=== PATIENT | female | born 2000 | race Caucasian/White ===

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

== ENCOUNTER → 2019-03-15 15:13 | Outpatient (CLI) | payer OTHER, SELFPAY ==
--- NOTE | 2019-03-15 11:19 | TONS_PTH ---
PATIENT: AUSTIN NUÑEZ LOC: [facility] U#:[id number] AGE/SX: 24/F ROOM: RE03/15/[address]: Dr. Ludwin Liu MD : 2000 BED: DIS: SPEC #: [id number] RECD: 03/15/19 15:11 STATUS: LOI BRIONNA #: [id number] ELIAS: 03/15/19 11:[address]: Ludwin Liu DEPT: SURGICAL PATHOLOGY RECD BY: Dianna Cerna ENTERED: 03/16/19 11:10 SP TYPE: TONSILS OTHR DR: Dr. Hamzah Aden MD [facility] Tissues: Tonsil, NOS Procedures: Surgery Specimen Level III HEADER OPERATION: Tonsillectomy PRE-OP DIAGNOSIS: Chronic tonsillitis, hypertrophy of tonsils TISSUE SUBMITTED: Tonsils, right pinned MICROSCOPIC DIAGNOSIS Right and left tonsils, bilateral tonsillectomies: Benign lymphoid follicular hyperplasia, consistent with chronic tonsillitis. AM:eamon 03/17/19 MICROSCOPIC DESCRIPTION Slides are reviewed. GROSS DESCRIPTION Received is one container labeled with the patient's name and designated tonsils - pin on right are two tonsils that in aggregate weigh 15.6 gm. The right tonsil has a pin on it and measures 3.5 x 2.5 x 1.8 cm. The left tonsil measures 2.8 x 3 x 2 cm. Both tonsils are similar in appearance. The external surfaces are pink-diallo, smooth, glistening and somewhat lobulated. Focally they are hemorrhagic, granular and bear cautery artifact. Serial cross sections through the tonsils reveal normal tonsillar architecture. Sections are submitted in two cassettes as follows: 1 - right tonsil, 2 - left tonsil. / SJ:eamon 03/16/19 TC:5 CPT: 09042 x2
== END ==
PROVIDERS: Family Provider Family Medicine; PCP Family Medicine; Referring Provider Otolaryngology; Visit Provider Otolaryngology
DX: J35.01 Chronic tonsillitis (principal)
CPT/HCPCS: 88304

== ENCOUNTER → 2019-06-24 11:48 | Outpatient (CLI) | payer OTHER, SELFPAY ==
[2019-06-24 15:24] LABS: Hematocrit 41.6 % (37-47); Hemoglobin 13.6 g/dL (12.0-15.0); Mean Corp Hgb Conc 32.7 g/dL (32-36); Mean Corpuscular Hgb 30.2 pg (27.0-32.0); Mean Corpuscular Volume 92.4 fL (81-99); Platelet Count 219 K/mm3 (150-450); RBC Distribution Width CV 13.3 % (11.6-14.6); RBC Distribution Width SD 45.3 fl (35.1-43.9)
[2019-06-24 15:38] LABS: Vitamin D,25 Hydroxy 16.8 ng/mL
[2019-06-24 16:08] LABS: ALB/GLOB Ratio 1.1 RATIO (0.9-2.4); AST(SGOT) 12 U/L (15-37); Alanine Aminotransfer ALT/SGPT 20 U/L (13-56); Albumin, Serum 3.8 g/dL (3.2-5.0); Alkaline Phosphatase 67 U/L (45-117); Anion Gap 7 (5-15); BUN 12 mg/dL (7-18); BUN/Creat Ratio 17.9 RATIO (10-20); Chloride 107 mmol/L (98-107); Creatinine, Serum 0.67 mg/dL (0.55-1.02); EST Glomerular Filtration Rate 119 mL/min (>60); Est Glom Filt Rate - Afr Amer 144 mL/min (>60); Globulin 3.5 g/dL (2.2-4.2); Glucose 78 mg/dL (74-106); Iron 37 ug/dL (50-170); Potassium 3.7 mmol/L (3.5-5.1); Protein, Total 7.3 g/dL (6.4-8.2); Sodium Level 139 mmol/L (136-145); Thyroid Stim Hormone (TSH) 0.71 uIU/mL (0.358-3.74)
== END ==
PROVIDERS: PCP Family Medicine; Referring Provider Family Medicine; Visit Provider Family Medicine
DX: N92.6 Irregular menstruation, unspecified (principal); F32.9 Major depressive disorder, single episode, unspecified
CPT/HCPCS: 36415; 80053; 82306; 83540; 84443; 85027

== ENCOUNTER 2020-02-01 13:04 | Observation (INO) | payer OTHER, SELFPAY ==
[2019-10-28 16:28] VITALS: BMI 27.8
--- NOTE | 2020-01-31 20:49 | HP.PCM_ITS ---
History and Physical Date of Admission: 02/01/20 HISTORY OF PRESENT ILLNESS 19 year old woman presents with complaints of bilateral macromastia as well as associated painful symptomatology of neck pain, thoracic back pain, bilateral shoulder pain from shoulder grooving from the weight of her breasts on her bra straps, and inframammary intertrigo for which she uses powders for relief. She denies any trauma to her breasts. Denies any nipple discharge. She has been seeing a Chiropractor for her neck and thoracic back pain without much relief in her painful symptomatology. We have received medical approval for the breast reduction surgery from her insurance carrier. It is scheduled for 02/01/20. She presents at this time for education and to answer her preop questions and concerns and to sign consents. PAST MEDICAL HISTORY Intertrigo Shoulder pain Chronic thoracic back pain Chronic neck pain Macromastia Anxiety and depression PAST SURGICAL HISTORY tonsillectomy ALLERGIES No Known Allergies MEDICATIONS Cholecalciferol (Vitamin D3) [Vitamin D3] Desogestrel-Ethinyl Estradiol [Juleber 28 Day Tablet] diazepam FAMILY HISTORY Other - No pertinent family history SOCIAL HISTORY Smoking Status: Never smoker alcohol intake: never substance use type: does not use REVIEW OF SYSTEMS General - Denies fever, fatigue, and weight loss. Eyes - Denies cataracts. Has glaucoma. ENT - Denies nasal congestion and sore throat. Endocrine - Denies excessive thirst and urination. Family history of breast cancer. Skin - Denies suspicious lesions and skin cancer. Has inframammary intertrigo for which she uses powders for relief. Musculoskeletal - Denies joint pain, weakness of muscles and joints, and arthritis. Has joint stiffness and neck pain and back pain. Her neck and back pain involve cervical and thoracic area. Has bilateral shoulder pain from shoulder grooving from the weight of her breasts on her bra straps. Neuro - Has headaches. Cardiovascular - Denies chest pain, fatigue, and shortness of breath with exertion. Psych - Denies anxiety. Has depression. Respiratory - Denies shortness of breath and chronic cough. Has asthma. Gastrointestinal - Denies nausea, vomiting, diarrhea. Has constipation. Hematologic - Denies abnormal bruising and bleeding. Genitourinary - Denies hematuria and urinary frequency. PHYSICAL EXAMINATION General - Alert and oriented. Patient's bra size is 36 DDD. HEENT - PERRL. EOMI. Throat is clear. Neck - Supple. No bony tenderness. There is some pericervical soft tissue tenderness. Lungs- Clear to auscultation. Heart - Regular rate and rhythm. Breasts - Patient has bilateral macromastia. No breast masses palpable. No axillary adenopathy noted. Distance from midclavicular line on the left to the nipple is 30 cm and from the nipple to the inframammary fold is 11 cm. Distance from midclavicular line on the right to the nipple is 31 cm and from nipple to the inframammary fold is 11 cm. Nipple areolar complex diameter is 7 cm bilaterally. No active inframammary int ertrigo noted at this time. Abdomen - Soft and non distended. Back - No bony tenderness noted. There is perivertebral soft tissue tenderness in the upper thoracic area. Extremities - FROM. No axillary adenopathy. Radial pulses are palpable. There is some bilateral shoulder tenderness with shoulder grooving from the weight of her breasts on her bra straps. Neuro - CN II-XII grossly intact. Psych - Normal and mood and affect. ASSESSMENT 1. Bilateral macromastia. 2. Neck pain. 3. Thoracic back pain. 4. Bilateral shoulder pain from shoulder grooving from the weight of the breasts on her bra straps. 5. Inframammary intertrigo. PLAN Discussed with the patient the procedure of breast reduction mammoplasty. I feel this procedure would be beneficial in this patient as it would help relieve her painful symptomatology. Patient states she has not had a mammogram. She will not one preop due to her age. Postoperatively, she would get a breast reduction baseline mammogram at some point. I would remove approximately 600 grams of breast tissue per side. We will send the tissue to pathology for analysis to rule out carcinoma. Discussed with patient the extent of scarring for this procedure. The biggest risk for wound healing problems is the T-zone area. Usually wound care and sometimes antibiotics are necessary for healing in this area. She would have drains in for a few days depending on the amount of tissue that is removed. She will be on antibiotics until the drains are removed. In general, the final breast size for this patient ranges from a C cup to a low D cup. Patient voices understanding. Surgery will be done under general anesthesia with a surgical observation overnight stay in the hospital. Patient was informed of the risks and complications of the procedure including alternatives to surgery. These were discussed with her personally. She voices understanding and wishes to proceed. Some of the risks and complications were included in a form from the [employer] [place] [employer]. We have received medical approval for the breast reduction mammaplasty. It is scheduled for February 01, 2020. Discussed with the patient that sometimes it is difficult to breast feed after a breast reduction surgery. She states if she has children in the future and if she has trouble with breast feeding, then she will bottle feed her baby. Also because of her age, she may still be developing her breasts. After her breast reduction surgery, if she is still developing she may increase her breast size about half a cup size on average. She understands that possibility and wishes to proceed. She had preop questions that were answered personally and to her satisfaction. Her consents were signed. She is having issues with anxiety and difficulty sleeping due to worrying about her upcoming surgery. Will prescribe Valium for bedtime until her surgery. We discussed the current risks associated with COVID-19. While it is understood that there is a community spread of COVID-19, the risk of mukul COVID-19 while at [place] ([facility]) is very low; however, the risk cannot be completely mitigated because of the community spread of the disease. We discussed in detail the risk of exposure to and/or potential harm posed by the COVID-19 virus with having a surgery/procedure at this time versus the risk of delaying the surgery/procedure. It is not possible to know either the risk of delaying the surgery or procedure or chance of getting an infection with perfect accuracy, but a joint decision was made to proceed at this time with the scheduled surgery/procedure as indicated on the consent form. Patient was notified that we will need to comply with any screening or testing [facility] wishes to perform or that surgery may be delayed for any positive results. Discussed with the patient that I was tested for COVID-19 on 09/02/19 which was negative and on 09/16/19 which was negative and on 09/30/19 which was negative and on 10/14/19 which was negative and on 10/28/19 which was negative and on 11/18/19 which was negative and on 12/09/19 which was negative and on 01/13/20 which was negative. My testing regimen at this time is to be COVID-19 tested every 2 weeks or so. Procedure Criteria Procedure Type: Elective COVID Risk Discussion: The surgeon/proceduralist and patient have discussed in detail the risk of exposure to and/or potential harm posed by the COVID-19 virus with having a surgery/procedure at this time versus the risk of delaying the surgery/procedure. It is not possible to know either the risk of delaying the surgery or procedure or chance of getting an infection with perfect accuracy, but a joint decision was made between the patient and the surgeon/proceduralist to proceed at this time with the scheduled surgery/procedure as indicated on the consent form.
[2020-02-01] VITALS (12 sets, daily range): BP systolic 100–134; BP diastolic 54–72; PULSE 76–102; RESP 14–18; TEMP 36.3–36.8; O2SAT 98–100; BMI 31.6
[2020-02-01 06:14] LABS: Internal QC Validated? YES +Cl - CLEAR BKGD; Pregnancy, Urine Negative Negative
[2020-02-01] MEDS: Scopolamine 1mg/72hr Patch 1 PATCH TD (06:30)
[2020-02-01] MEDS: Gabapentin 600 MG Tablet PO (06:30)
[2020-02-01] MEDS: Acetaminophen 500 MG Tablet 1000 MG PO ×3 (06:30→22:54)
[2020-02-01 06:35] LABS: Magnesium 1.8 mg/dL (1.6-2.6)
[2020-02-01] MEDS: Lactated Ringers 1,000 ML 40 ML IV ×2 (06:49→14:36)
[2020-02-01 06:50] LABS: Bedside Glucose 64 mg/dL (70-110)
--- NOTE | 2020-02-01 07:30 | BR_PTH ---
PATIENT: AUSTIN NUÑEZ LOC: [facility] U#:[id number] AGE/SX: 19/F ROOM: MS320 RE02/01/[address]: Dr. Rao Loomis MD : 2000 BED: 1 DIS: 02/02/2020 SPEC #: [id number] RECD: 02/01/20 12:53 STATUS: LOI BRIONNA #: [id number] ELIAS: 02/01/20 07:[address]: Rao Loomis DEPT: SURGICAL PATHOLOGY RECD BY: Deyanira Downs ENTERED: 02/02/20 08:36 SP TYPE: MAMOPLASTY OTHR DR: Dr. Hamzah Aden MD Tissues: A - Right breast, NOS B - Left breast, NOS Procedures: Surgery Specimen Level IV HEADER OPERATION: ERAS, breast reduction mammoplasty PRE-OP DIAGNOSIS: Bilateral macromastia; neck and thoracic back pain; bilateral shoulder pain; inframammary intertrigo TISSUE SUBMITTED: A - Left breast tissue, B - Right breast tissue MICROSCOPIC DIAGNOSIS A. Left breast, reduction mammoplasty: Skin with no pathologic change. Breast parenchyma with focal duct ectasia and fibrocollagenous change. B. Right breast, reduction mammoplasty: Skin with no pathologic change. Breast parenchyma with focal duct ectasia and fibrocollagenous change. AM:eamon 02/03/20 MICROSCOPIC DESCRIPTION Slides are reviewed. GROSS DESCRIPTION A - Received in fixative is one container labeled with the patient's name and designated left breast. The specimen consists of multiple irregular fragments of rubbery, yellow-diallo soft tissue ranging in size from 2 to 14 cm and weighing in aggregate 937 gm. Portions of light diallo skin are adherent to the larger fragments. No cutaneous lesions are identified and serial sections reveal yellow-white cut surfaces. No distinct mass lesions are identified. Hop Picker sections are submitted in five cassettes. B - Received in fixative is one container labeled with the patient's name and designated right breast. The specimen consists of multiple irregular fragments of rubbery, yellow-diallo soft tissue ranging in size from 4 to 15 cm and weighing in aggregate 1036 gm. Portions of light diallo skin are adherent to the larger fragments. No cutaneous lesions are identified and serial sections reveal yellow-white cut surfaces. No distinct mass lesions are identified. Hop Picker sections are submitted in five cassettes. / AM:eamon 02/02/20 TC:5 CPT: 70490 x2
[2020-02-01] MEDS: Cefazolin 2 GM in 0.9% Normal Saline 100 ML IV (07:39)
[2020-02-01] MEDS: Lidocaine 1% /Epi 1:100 (20ml) 20 ML Vial (08:10)
--- NOTE | 2020-02-01 12:56 | OP.PCM_ITS ---
Report of Operation Date of Procedure: 02/01/20 Pre-Operative Diagnosis: 1. Bilateral macromastia. 2. Neck pain. 3. T horacic back pain. 4. Bilateral shoulder pain from shoulder grooving from the weight of the breasts on her bra straps. 5. Inframammary intertrigo. Post-Operative Diagnosis: Same. Surgery/Procedure Performed:: Bilateral breast reduction mammaplasty. Description of Surgical Findings:: 19 year old woman presents with complaints of bilateral macromastia as well as associated painful symptomatology of neck pain, thoracic back pain, bilateral shoulder pain from shoulder grooving from the weight of her breasts on her bra straps, and inframammary intertrigo for which she uses powders for relief. She denies any trauma to her breasts. Denies any nipple discharge. She has been seeing a Chiropractor for her neck and thoracic back pain without much relief in her painful symptomatology. We have received medical approval for the breast reduction surgery from her insurance carrier. It is scheduled for 02/01/20. She presents at this time for education and to answer her preop questions and concerns and to sign consents. Patient was informed of the risks and complications of the procedure including alternatives to surgery. These were discussed with the patient personally. Patient voices understanding and wishes to proceed. Some of the risks and complications were included in a form from the [employer]. IV Fluids - 2300 ml. Urine Output - 550 ml. Tissue removed from the left breast - 912 grams. Tissue removed from the right breast - 1024 grams. I used AmnioFill Placental Connective Tissue Powder, (500 mg in each breast). Catalog Number - [id number]. Lot Number - [id number]. Expiration - June 01, 2024, (left breast). Catalog Number - [id number]. Lot Number - [id number]. Expiration - June 01, 2024, (right breast). I used Dea absorbable hemostat, (I used 4 vials, 2 in each breast). Reference Number - [id number]. Lot Number - [id number]. Expiration - August 28, 2024. customer service operator: Darci Estrada. Type of Anesthesia:: General Specimen's removed: 1. Left breast tissue to Pathology. 2. Right breast tissue to Pathology. Drains: Raymundo x2 (one in each breast). Estimated Blood Loss (mL): 250 ml. Fluids Replaced: 2850 ml (IV Fluids 2300 ml, Urine Output 550 ml). Description of Procedure: In the preop area, the patient was placed in the sitting position and preoperative markings were made. The sternum midline was marked down to the umbilicus. The inframammary folds were marked bilaterally. The midclavicular line was then marked down to the nipple, then from the nipple to the inframammary fold. The inframammary fold was then superimposed on the midclavicular line and I made a point 1 cm below that to be the new position of the nipple-areolar complex. 7 cm lines were then drawn divergent from that point to encompass the nipple-areolar complex. The distance between the diver gent lines was 9 cm. The patient was then placed in the supine position and taken to the operating room and placed under general anesthesia and her breasts were prepped and draped in usual fashion. Ioban draping was also used. SCDs were placed for DVT prophylaxis. Perioperative antibiotics were given intravenously. A Lauren catheter was also placed. For the surgery I wore an N95 mask and wore proper eye protection. I then josué straight lines down from the lines drawn divergent around the nipple-areolar complex down to the inframammary fold. The width of the pedicle is 9 cm. I then used a 42 mm circular template for a new size of the nipple-areolar complex. The central markings were infiltrated with Xylocaine and epinephrine. The central skin was then deepithelialized. I started on the left side first and then went to the right side. I then mobilized medial and lateral breast flaps at the level of Dimple's fascia down to within a centimeter of the chest wall. This was met in the midline of the breast with dissection at the level of Dimple's fascia down to within a centimeter of the chest wall. Once the central breast mound pedicle was from the skin envelope, the reduction was then begun. Most of the tissue was removed from the superior aspect of the breast and the lateral aspect of the breast. I then sutured the leading edge of the medial and lateral breast flaps to the midline of the inframammary fold with 2-0 Vicryl suture. The vertical incision was approximated using surgical clips. The excess tissue from the medial and lateral breast flaps were excised and the horizontal incision was approximated using surgical clips. The patient was then placed in a sitting position. Using a vertical limb length of 4.5 cm, I josué the new position of th e new nipple-areolar complexes on both breasts. They were in good position on the central aspect of the breast mound. Good symmetry was noted between the left breast and the right breast. Good shape and contour and projection was noted and appeared clinically to be a full C cup or small D cup. The patient was then placed back in the supine position and the surgical clips were removed. The breast wounds were then irrigated with Irrisept 0.05% Chlorhexidine solution which was followed by saline irrigation. Hemostasis was obtained using electrocautery. The tissue removed from the left breast was 912 grams. The tissue removed from the right breast was 1024 grams. The tissue that was removed from the breasts was sent to Pathology for analysis to rule out carcinoma. After hemostasis was obtained using electrocautery, I then sprayed Dea absorbable hemostat into both breast wounds. I used 2 vials for each side. I then placed a size 15 Raymundo drain into each breast wound to be brought through the lateral aspect of the horizontal incision. I then closed the breast wounds by first approximating the leading edge of the medial and lateral breast flaps to the midline of the inframammary fold with 2-0 Vicryl suture. The deep dermis and subcutaneous tissue of the vertical incision and the horizontal incisions were approximated using 3-0 Monocryl interrupted sutures. While these sutures were being placed, I placed AmnioFill placental connective tissue powder in the Tzone area to help promote healing in this area. I used 500 mg of AmnioFill for each breast at the Tzone area. The horizontal incision was then approximated using 4-0 V-Loc unidirectional barbed running subcuticular suture. I also placed a few 4-0 Prolene vertical mattress interrupted sutures at the level of the Tzone. The vertical incision was then closed on the skin with 4-0 Prolene interrupted sutures. With a vertical limb length of 4.5 cm, I josué a circular incision where the nipple-areolar complex would be brought through this keyhole incision. Incisions were made and the nipple areolar complex was brought through the keyhole incision. The nipple-areolar complex was secured to the breast skin using 3-0 Monocryl interrupted sutures for deep dermis and subcutaneous tissue. The skin was approximated using 4-0 Prolene simple interrupted sutures. This was then covered with Histoacryl skin tissue adhesive. I sutured the drain to the skin using 3-0 nylon suture. At the end of the procedure, the breasts were soft with no evidence of vascular compromise. No evidence of hematomas were noted. The nipples were viable. I then dressed the breasts with a Kerlix gauze and a surgical bra. Then patient tolerated the procedure well and will be sent to the recovery room in satisfactory condition. She will be admitted for surgical observation overnight stay. She will go home tomorrow once she is tolerating oral pain medication. I will remove the drains in a few days. She will keep her head elevated during the initial postoperative period. She will be maintained on a lifting restriction and keep her head elevated during the initial postoperative period. Post-discharge, she may get a compression sports bra as well. She will have the Lauren removed in the morning. She will be sent home on antibiotics and pain medicine. Sutures will be removed in 1-2 weeks. Grafts/Implants Used: AmnioFill x2 and Dea. - Complications None. - Admit VTE Documentation VTE Present on Admission: No VTE Mechan Device Prophylaxis: SCD's VTE Pharm Prophylaxis ordered?: Yes Surgery Charges CPT - 57197 ICD-10 - N62, M54.2, M54.6, M25.519, L30.4 [id number] N62, M54.2, M54.6, M25.519, L30.4
[2020-02-01] MEDS: Lactated Ringers 1,000 ML 60 ML IV ×2 (14:36→15:00)
[2020-02-01] MEDS: Cefazolin 1 GM/50 ML BAG IV ×2 (15:55→22:52)
[2020-02-01] MEDS: Gabapentin 100 MG Capsule 200 MG PO (17:34)
[2020-02-01] MEDS: Docusate Sodium 100 MG Capsule PO (22:52)
[2020-02-02] MEDS: 0.9% Saline Lock 10 ML Syringe IV ×2 (00:29→05:04)
[2020-02-02 04:40] VITALS: BP 100/58; PULSE 88; RESP 16; TEMP 36.6; O2SAT 98
[2020-02-02] MEDS: Acetaminophen 500 MG Tablet 1000 MG PO ×2 (05:03→12:30)
[2020-02-02] MEDS: Cefazolin 1 GM/50 ML BAG IV (05:04)
[2020-02-02 07:14] LABS: Hematocrit 29.2 % (37-47); Hemoglobin 9.3 g/dL (12.0-15.0); Mean Corp Hgb Conc 31.8 g/dL (32-36); Mean Corpuscular Hgb 29.8 pg (27.0-32.0); Mean Corpuscular Volume 93.6 fL (81-99); Mean Platelet Vol. 10.7 fl (6.2-12.0); Platelet Count 186 K/mm3 (150-450); RBC Distribution Width CV 12.9 % (11.6-14.6); RBC Distribution Width SD 44.6 fl (35.1-43.9); Red Blood Count 3.12 M/mm3 (4.2-5.4); White Blood Count 7.5 K/mm3 (4.4-11.0)
[2020-02-02 07:42] LABS: Anion Gap 3 (5-15); BUN 4 mg/dL (7-18); BUN/Creat Ratio 7.9 RATIO (10-20); Calcium,Total 7.8 mg/dL (8.5-10.1); Chloride 110 mmol/L (98-107); EST Glomerular Filtration Rate 165 mL/min (>60); Est Glom Filt Rate - Afr Amer 199 mL/min (>60); Estimated Creatinine Clearance 135.43 ml/min; Glucose 84 mg/dL (74-106); Potassium 3.7 mmol/L (3.5-5.1); Prealbumin 18.4 mg/dL (20.0-40.0); Sodium Level 140 mmol/L (136-145)
[2020-02-02 08:17] VITALS: O2SAT 96
[2020-02-02 08:45] VITALS: BP 114/60; PULSE 89; RESP 16; TEMP 36.8; O2SAT 95
[2020-02-02] MEDS: Gabapentin 100 MG Capsule 200 MG PO ×2 (08:52→12:31)
[2020-02-02] MEDS: Docusate Sodium 100 MG Capsule PO (08:52)
[2020-02-02] MEDS: Enoxaparin 40 MG/0.4 ML Syringe SC (08:52)
[2020-02-02] MEDS: oxyCODONE 5 MG Tablet PO ×2 (08:55→14:34)
[2020-02-02] MEDS: Ensure Surgery 237 ML LIQUID PO (08:55)
[2020-02-02 09:47] VITALS: O2SAT 96
--- NOTE | 2020-02-02 13:01 | PN.SURG_ITS ---
Subjective: Postop #1 Patient is resting comfortably. - Physical Exam Vitals/I&O's: Vital Signs Temp Pulse Resp BP Pulse Ox 98.2 F 89 16 114/60 96 02/02/20 08:45 02/02/20 08:45 02/02/20 08:45 02/02/20 08:45 02/02/20 09:47 Oxygen Flow Rate (L/min) 6 Oxygen Delivery Method Room Air Weight: 167 lb 5.294 oz Body Mass Index (BMI) 31.6 Intake and Output for Last 24 Hours 01/31/20 02/01/20 02/02/20 23:59 23:59 23:59 Intake Total 4186.5 / 4186.5 4708 / 4708 Output Total 720 / 720 3850 / 3850 Balance 3466.5 / 3466.5 858 / 858 Drainage 40 ml yesterday, 200 ml today. General: Alert, Oriented x3 HEENT: PERRLA, EOMI Oral: Moist Mucosa Neck: Supple Abdomen: Soft, Non-Distended Skin: Incision - bilateral breast incisions are dry and intact. Breasts are soft and symmetrical. No clinical evidence of hemtoma. Nipples are viable. Neurological: Cranial nerves II-XII grossly intact Psych/Mental Status: Normal Affect, Appropriate Microbiology Past 72 Hours 01/31/20 16:20 Interface Orders SARS-CoV-2 Antigen (Rapid) - Final Laboratory Results 02/02/20 06:14: WBC 7.5, RBC 3.12 L, Hgb 9.3 L, Hct 29.2 L, MCV 93.6, MCH 29.8, MCHC 31.8 L, RDW Std Deviation 44.6 H, RDW Coeff of Jani 12.9, Plt Count 186, MPV 10.7 02/02/20 06:14: Sodium 140, Potassium 3.7, Chloride 110 H, Carbon Dioxide 27.0, Anion Gap 3 L, BUN 4 L, Creatinine 0.50 L, Estim Creat Clear Calc 135.43, Est GFR (MDRD) Af Amer 199, Est GFR (MDRD) Non-Af 165, BUN/Creatinine Ratio 7.9 L, Glucose 84, Calcium 7.8 L, Prealbumin 18.4 L Current Medications Acetaminophen (Acetaminophen 500 Mg Tablet) 1,000 mg PO Q6 [facility] Last Admin: 02/02/20 12:30 Dose: 1,000 mg Documented by: Cholecalciferol (Cholecalciferol (Vit D3) 1,000 Unit (25mcg)) 2,000 unit PO DAILY [facility] Last Admin: 02/02/20 08:52 Dose: 2,000 unit Documented by: Docusate Sodium (Docusate Sodium 100 Mg Capsule) 100 mg PO BID [facility] Last Admin: 02/02/20 08:52 Dose: 100 mg Documented by: Enoxaparin Sodium (Enoxaparin 40 Mg/0.4 Ml Syringe) 40 mg SC DAILY [facility] Last Admin: 02/02/20 08:52 Dose: 40 mg Documented by: Enteral Nutritional Formula (Ensure Surgery 237 Ml Liquid) 237 ml PO TIDCM [facility] Last Admin: 02/02/20 12:31 Dose: Not Given Documented by: Gabapentin (Gabapentin 100 Mg Capsule) 200 mg PO TIDCM [facility] Last Admin: 02/02/20 12:31 Dose: 200 mg Documented by: Hydromorphone HCl (Hydromorphone 1 Mg/Ml Syringe) 0.5 - 1 mg IV Q3H PRN PRN PRN Reason: Pain Score 6-10 Hydromorphone HCl (Hydromorphone 0.5 Mg/0.5 Ml Syringe) 0.5 - 1 mg IV Q3H PRN PRN PRN Reason: Pain Score 6-10 Cefazolin Sodium () 1 gm in 50 mls @ 100 mls/hr IV Q8 [facility] Last Infusion: 02/02/20 05:34 Dose: Infused Documented by: Sodium Chloride () 250 mls @ 15 mls/hr IV .[id number] PRN PRN Reason: Saline Flush Sodium Chloride () 250 mls @ 15 mls/hr IV .[id number] PRN PRN Reason: Additional IVPB Infusion Magnesium Chloride (Magnesium Chloride 64 Mg Delay Rel.Tablet) 128 mg PO DAILY PRN PRN PRN Reason: Constipation Ondansetron HCl (Ondansetron Odt 4 Mg Tablet) 4 mg PO Q6H PRN PRN PRN Reason: NAUSEA Oxycodone HCl (Oxycodone 5 Mg Tablet) 5 - 10 mg PO Q4H PRN PRN PRN Reason: Pain Score 4-10 Last Admin: 02/02/20 08:55 Dose: 5 mg Documented by: Scopolamine HBr (Scopolamine 1mg/72hr Patch) 1 patch TD Q3D [facility] Stop: 02/02/20 14:35 Last Admin: 02/01/20 14:34 Dose: Not Given Documented by: Sodium Chloride (0.9% Saline Lock 10 Ml Syringe) 10 - 40 ml IV UD PRN PRN Reason: SALINE FLUSH Last Admin: 02/02/20 05:04 Dose: 10 ml Documented by: Medical Necessity - Tobacco Use Smoking Status: Never smoker Assessment/Plan All Active Problems (Last Reviewed 01/27/20 @ 18:[address] Rao Loomis MD) Acute postoperative anemia due to expected blood loss (Acute) 1. Bilateral macromastia. 2. Neck pain. 3. Thoracic back pain. 4. Bilateral shoulder pain from shoulder grooving from the weight of the breasts on her bra straps. 5. Inframammary intertrigo. 6. s/p bilateral breast reduction mammaplasty. 7. Acute postoperative anemia due to expected blood loss. Bilateral breast incisions are dry and intact. Breasts are soft and symmetrical. No clinical evidence of hematoma. Nipples are viable. Hgb 9.3. She has acute postoperative anemia due to expected blood loss. Operative blood loss was 250 ml. In addition, there is IV dilution as the I's/O's were positive 4 liters. She was started on Iron supplementation. Will check a Hgb post discharge in one week. Prealbumin was 18.4. Encourage nutritional supplementation with protein to help the healing process. Discharge home today. Continue head elevation. Continue surgical bra and continue lifting restriction. Wrote script for Cefadroxil until the drains are removed. Wrote script for Percocet for pain (40 tabs). Wrote script for Iron supplements (30 tabs) with 2 refills. Followup office Friday02/07/20 to remove her drains. Will remove sutures in 1-2 weeks.
--- NOTE | 2020-02-02 13:16 | DCINST_ITS ---
You will use the following diet at home:: No restrictions, Other - encourage nutritional supplementation with protein to help the healing process. Discharge Activity: May not drive while taking narcotic pain medications., May Not Shower - until the drains are removed. May resume sexual activity in: No Restrictions Weight Bearing Status: Weight bearing as tolerated Lifting Restrictions: 20 lbs. Keep extremity elevated above heart level: - - elevate head. Call your doctor if your incision/area has: Continuous Slow Oozing, Sudden Increased Bleeding, Increased Pain/ Swelling, Increased Redness, Foul Smelling Discharge, Swelling at the incision site Call your doctor if you observe: Fever of 101 or Higher, Coldness, Increased Pain, Shortness of breath, Chest pain, Calf discomfort, Uncontrolled pain Suture Line Care: - - dry dressings daily. Change Dressing in (Days):: 1 - dry dressngs daily. Cleanse incision/area with: - - may shower after the drains are removed. Drain: Suction - magalys drain x2 to bulb suction. empty and record output daily. Allergies/Adverse Reactions: Allergies No Known Allergies Allergy (Verified 01/26/20 09:11) Medications to take at Discharge Cholecalciferol (Vitamin D3) [Vitamin D3] 2,000 unit PO DAILY 01/21/20 Desogestrel-Ethinyl Estradiol [Juleber 28 Day Tablet] 1 ea PO DAILY 01/21/20 Cefadroxil [Duricef] 500 mg PO BID #14 cap 02/02/20 Iron Poly/Vit C [Niferex-150] 150 mg PO DAILYCM #30 cap 02/02/20 Oxycodone HCl/Acetaminophen [Percocet 5/325] 1 tablet PO Q4H PRN PRN 7 Days #40 tablet 02/02/20 Scopolamine Patch 1mg/72hr [Transderm-Scop] 1 patch TD Q3D patch 02/02/20 The following prescriptions were given: Cefadroxil [Duricef] 500 mg PO BID #14 cap Transmission Status: Pending to [facility] Iron Poly/Vit C [Niferex-150] 150 mg PO DAILYCM #30 cap Transmission Status: Pending to [facility] Oxycodone HCl/Acetaminophen [Percocet 5/325] 1 tablet PO Q4H PRN PRN 7 Days #40 tablet PRN Reason: Pain Score 6-10 Transmission Status: Sent to [facility] Orders to be completed after discharge: CBC-Complete Blood Cnt No Diff Time Frame: 1 Week, Facility: [facility], Location: [facility] Primary Care Physician: Ervin Aden MD [Primary Care Provider] - Test Results: Test results from this visit will be discussed in further detail at your follow- up appointment, if applicable. Please Follow Up With: Rao Loomis MD When: friday02/07/20. call [phone] for appt. Proposed Discharge Date: 02/02/20
[2020-02-02 14:30] VITALS: BP 119/62; PULSE 82; RESP 16; TEMP 36.7; O2SAT 97
== END 2020-02-02 15:10 | disposition home or self-care (01) ==
LOC: SDC 02-02 10:31
PROVIDERS: Anesthesiology; Admitting Provider Surgery; PCP Family Medicine; Referring Provider Surgery; Visit Provider Surgery
PROC: 0H0U0ZZ Alteration of Left Breast, Open Approach (ICD-10-PCS; CPT 19318; principal; 2020-02-01 07:15)
DX: N62 Hypertrophy of breast (principal); Z20.828 Contact with and (suspected) exposure to other viral communicable diseases; M54.2 Cervicalgia; M54.6 Pain in thoracic spine; L30.4 Erythema intertrigo; M25.511 Pain in right shoulder; M25.512 Pain in left shoulder
CPT/HCPCS: 00402; 19318; 36415; 80048; 81025; 82962; 83735; 84134; 85027; 87426; 88305; 94762; 96365; 96366; 96372; 99218; 99251; C9803; J7120; A4216; G0378; G0379; G0463; J2405; Q9968

== ENCOUNTER → 2020-02-10 15:06 | Outpatient (CLI) | payer OTHER, SELFPAY ==
[2020-02-10 17:51] LABS: Anion Gap 6 (5-15); BUN 6 mg/dL (7-18); BUN/Creat Ratio 10.4 RATIO (10-20); Calcium,Total 8.9 mg/dL (8.5-10.1); Chloride 107 mmol/L (98-107); Creatinine, Serum 0.58 mg/dL (0.55-1.02); EST Glomerular Filtration Rate 141 mL/min (>60); Est Glom Filt Rate - Afr Amer 170 mL/min (>60); Glucose 96 mg/dL (74-106); Potassium 3.8 mmol/L (3.5-5.1); Sodium Level 139 mmol/L (136-145); T4 Free Direct 1.05 ng/dL (0.76-1.46); Thyroid Stim Hormone (TSH) 1.69 uIU/mL (0.358-3.74)
[2020-02-10 17:55] LABS: Vitamin D,25 Hydroxy 37.9 ng/mL
== END ==
PROVIDERS: PCP Family Medicine; Referring Provider Family Medicine; Visit Provider Family Medicine
DX: R63.5 Abnormal weight gain (principal); E55.9 Vitamin D deficiency, unspecified
CPT/HCPCS: 36415; 80048; 82306; 82533; 84439; 84443

== ENCOUNTER → 2020-02-11 15:31 | Outpatient (CLI) | payer OTHER, SELFPAY ==
[2020-02-11 18:18] LABS: Hematocrit 35.5 % (37-47); Hemoglobin 11.2 g/dL (12.0-15.0); Mean Corp Hgb Conc 31.5 g/dL (32-36); Platelet Count 415 K/mm3 (150-450); RBC Distribution Width CV 13.1 % (11.6-14.6); RBC Distribution Width SD 43.1 fl (35.1-43.9); Red Blood Count 3.86 M/mm3 (4.2-5.4); White Blood Count 7.8 K/mm3 (4.4-11.0)
== END ==
PROVIDERS: PCP Family Medicine; Referring Provider Surgery; Visit Provider Surgery
DX: D62 Acute posthemorrhagic anemia (principal)
CPT/HCPCS: 36415; 85027

== ENCOUNTER → 2020-02-29 16:13 | Outpatient (CLI) | payer OTHER, SELFPAY | PROVIDERS: PCP Family Medicine; Visit Provider Nurse Practitioner Family | DX: T81.89XA Other complications of procedures, not elsewhere classified, initial encounter (principal) | CPT/HCPCS: 87070; 87075; 87077; 87186; 87205 ==

== ENCOUNTER 2020-04-11 21:27 | Emergency (ER) | payer OTHER, SELFPAY ==
[2020-04-11 21:27] VITALS: BP 134/87; PULSE 73; RESP 16; TEMP 36.9; O2SAT 99; BMI 29.5
--- NOTE | 2020-04-11 21:34 | EKG12_ITS ---
Test Reason : DYSRHYTHMIA Blood Pressure : / mmHG Vent. Rate : 067 BPM Atrial Rate : 067 BPM P-R Int : 140 ms QRS Dur : 098 ms QT Int : 406 ms P-R-T Axes : -11 092 051 degrees QTc Int : 429 ms Normal sinus rhythm Rightward axis Borderline ECG Confirmed by JUDY SALDIVAR, ZEYAD ([id number]), newspaper copy editor SANTOS MILLER ([id number]) on 04/13/2020 10:31:08 AM Referred By: Confirmed By:ZEYAD KIM MD
--- NOTE | 2020-04-11 21:41 | ED.RN ---
NO OLD EKGS IN MUSE
[2020-04-11 21:46] VITALS: BP 132/91; PULSE 67; RESP 22; O2SAT 98
--- NOTE | 2020-04-11 21:49 | ED.VIS.GEN ---
History of Present Illness Chief Complaint: Nausea/Vomiting/Diarrhea Informant: Patient Onset: Days Maximum Severity: Mild Narrative: The patient presents complaining of a diarrhea body aches she indicates she tested positive for Covid on Friday she was tested because she lost taste and smell exposed to father who had Covid, she had a slight cough although those symptoms seem to have resolved and then today she developed copious diarrhea and she was brought in for evaluation she is had no fever cough is gone no abdominal pain bowel bladder habits normal except for copious diarrhea no blood she is had no exposures to anyone who is been sick or contaminated food, she has no history of GI ailments Past Medical History - Allergies and Home Meds Allergies/Adverse Reactions: Allergies No Known Allergies Allergy (Verified 03/29/20 08:51) Primary Care Physician: Ervin Aden MD [Primary Care Provider] - Smoking Status: Never smoker Review of Systems General: Denies: Chills, Fever, Sweats Eyes: Denies: Visual changes - bilaterally, Diplopia ENT: Denies: Rhinorrhea, Sore throat Cardiovascular: Denies: Chest pain, Palpitations Respiratory: Denies: Dyspnea, Cough, Dyspnea on exertion Gastrointestinal: Reports: Diarrhea. Denies: Abdominal pain, Nausea, Vomiting, Melena, Hematochezia Genitourinary: Denies: Dysuria, Hematuria, Frequency Musculoskeletal: Denies: Back pain, Extremity Pain Skin: Denies: Rash, Wounds Neurological: Denies: Headache, Weakness, Numbness Physical Exam Vital Signs/Narrative: Vital Signs Temp Pulse Resp BP Pulse Ox 04/11/20 21:46 67 22 H 132/91 H 98 04/11/20 21:27 98.4 F 73 16 134/87 H 99 General: Well nourished, Well developed, No Acute Distress Head: Normocephalic, Atraumatic Eyes: Perrl, EOMI ENT: Moist mucous membranes, No rhinorrhea Neck: Supple, Nontender Cardiovascular: Regular rate, Regular rhythm, No murmurs Respiratory: No distress, CTA bilaterally, Chest nontender Abdomen: Soft, Nontender, Nondistended, Normal bowel sounds Back: Nontender, Normal Inspection Extremities: Nontender, No edema Skin: Normal color, No rash Neurological: Alert, Oriented x3, Cranial nerves II-XII grossly intact, Normal Strength, Normal Sensation Psychological: Normal affect, Normal Mood Diagnostic/Tx/Re-eval - Medical Decision Making Patient is known to be coronavirus positive now with diarrhea, there is no signs of any cardiopulmonary issues her vital signs are unremarkable pulse ox is 98% her lungs sound clear, given all the above ED screening evaluation EKG shows sinus rhythm rate 70 no acute injury pattern, chest x-ray 1 view to my review is unremarkable radiology generally agrees, the rest of the screening labs are generally unremarkable see those reports, she received IV fluids clinically she looks well she will be discharged on Zofran continue to force fluids and diet as tolerated follow with outpatient providers and return for change in symptoms Home stable Final impression coronavirus 19 infection with diarrhea ED Disposition - Plan for ED Patient: Diagnosis: Diarrhea due to severe acute respiratory syndrome coronavirus 2 (SARS-CoV-2) infection Instructions: Coronavirus Disease 2019 (COVID-19): Overview, ED Diet for Vomiting or Diarrhea Adult Prescriptions: Ondansetron [Zofran Odt] 4 mg PO Q8H PRN PRN #10 tab PRN Reason: Nausea Prescription Printed Referrals: Ervin Aden MD [Primary Care Provider] -
[2020-04-11] MEDS: Ondansetron 4 MG/2 ML Vial IV (21:59)
[2020-04-11] MEDS: morphine 8 MG/ML Syringe IV (21:59)
[2020-04-11] MEDS: 0.9% Normal Saline 1,000 ML 1000 ML IV (21:59)
[2020-04-11 22:02] LABS: Absolute Lymphocyte Count 1.83 X10^3/uL (0.83-4.51); Absolute Neutrophil Count 2.2 X10^3/uL (2.0-7.7); Basophil# 0.03 X10^3/uL; Basophil% 0.7 % (0-1); Eosinophil# 0.02 X10^3/uL; Eosinophils% 0.4 % (0-5); Hematocrit 44.5 % (37-47); Hemoglobin 14.6 g/dL (12.0-15.0); Lymphocyte # 1.83 X10^3/ul (4.0); Lymphocyte % 40.3 % (19-41); Mean Corp Hgb Conc 32.8 g/dL (32-36); Mean Corpuscular Hgb 28.9 pg (27.0-32.0); Mean Corpuscular Volume 88.1 fL (81-99); Mean Platelet Vol. 10.6 fl (6.2-12.0); Monocyte# 0.48 X10^3/uL; Monocyte% 10.6 % (0-10); NRBC Flagged by Analyzer 0 % (0-5); Neutrophil # 2.17 X10^3/uL (2.7-7.7); Neutrophil % 47.8 % (47-70); Platelet Count 219 K/mm3 (150-450); RBC Distribution Width CV 11.9 % (11.6-14.6); RBC Distribution Width SD 38.6 fl (35.1-43.9); Red Blood Count 5.05 M/mm3 (4.2-5.4); White Blood Count 4.5 K/mm3 (4.4-11.0)
--- NOTE | 2020-04-11 22:06 | RAD_ITS ---
HISTORY: COVID + ON FRIDAY. NOW N/V/D, AND FEELING Tquot;SHAKYTquot; EXAM: XR Chest 1 View: COMPARISON: None FINDINGS: # of images incl. paperwork: 1 Lungs are clear. Heart is not enlarged. No acute osseous pathology perceived. Pulmonary vascularity is distinct. No effusions. RAD/Chest 1 View (Portable) IMPRESSION: Normal. at 2229 Reported and signed by: Ilia Churchill MD Electronically Signed: Ilia Churchill MD at 22:28 EST Tel , Service support ,
[2020-04-11 22:10] LABS: Internal QC Validated? YES +Cl - CLEAR BKGD; Pregnancy, Serum, hCG Quali. NEGATIVE Negative
[2020-04-11 22:18] LABS: ALB/GLOB Ratio 0.9 RATIO (0.9-2.4); AST(SGOT) 59 U/L (15-37); Alanine Aminotransfer ALT/SGPT 85 U/L (13-56); Albumin, Serum 3.6 g/dL (3.2-5.0); Alkaline Phosphatase 72 U/L (45-117); Anion Gap 5 (5-15); BUN 7 mg/dL (7-18); BUN/Creat Ratio 10.1 RATIO (10-20); Calcium,Total 9.2 mg/dL (8.5-10.1); Chloride 106 mmol/L (98-107); Creatinine, Serum 0.69 mg/dL (0.55-1.02); EST Glomerular Filtration Rate 114 mL/min (>60); Est Glom Filt Rate - Afr Amer 138 mL/min (>60); Estimated Creatinine Clearance 98.14 ml/min; Globulin 4.1 g/dL (2.2-4.2); Glucose 93 mg/dL (74-106); Lipase 66 U/L (73-393); Potassium 3.9 mmol/L (3.5-5.1); Protein, Total 7.7 g/dL (6.4-8.2); Sodium Level 138 mmol/L (136-145)
== END 2020-04-11 23:07 | disposition home or self-care (01) ==
PROVIDERS: Emergency Provider Emergency Medicine; PCP Family Medicine
DX: R19.7 Diarrhea, unspecified (principal); U07.1 COVID-19
CPT/HCPCS: 71045; 80053; 83690; 84703; 85025; 93005; 96374; 96375; 99283; J7030; A4216; J2405

== ENCOUNTER 2021-08-24 13:00 | Emergency (ER) | payer OTHER, SELFPAY ==
[2021-08-24 13:10] VITALS: BP 113/64; PULSE 66; RESP 16; TEMP 36.7; O2SAT 97; BMI 34.1
[2021-08-24] MEDS: LORazepam 2 MG/ML Syringe 0.5 MG IV (13:42)
[2021-08-24] MEDS: Ondansetron 4 MG/2 ML Vial IV (13:42)
--- NOTE | 2021-08-24 14:33 | EX.ED.DYSGE1 ---
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 She wears wearing gloves. Apparently she had packed illicit drugs in her rectum. One of the packages ruptured. She states she had instant burning arise felt nauseous palpitations and anxious. The denied having any chemicals. She would not divulge what the compound may be. Patient states she is never had a problem before. Patient has past medical history of skin neoplasm and chronic thoracic back pain as well as chronic neck pain. She has no reported allergies. Prior similar symptoms: No Recent Illness/Hospitalization: No PFSH PFS Medical History Acute postoperative anemia due to expected blood loss Anxiety and depression Chronic neck pain Chronic thoracic back pain Hypertrophic scar of skin Intertrigo Macromastia Neoplasm of skin of chest Neoplasm of skin of lower back Nonhealing surgical wound Shoulder pain Unspecified open wound of left breast, sequela Unspecified open wound of right breast, sequela Home Medications NK 08/24/21 [History Last Taken Unknown] Allergy/AdvReac Type Severity Reaction Status Date / Time No Known Allergies Allergy Verified 08/24/21 13:15 Family History Other No pertinent family history Surgical History History of bilateral breast reduction surgery History of excision of lesion History of tonsillectomy Social History Smoking Status: Never smoker alcohol intake: never substance use type: does not use additional social history: DOES NOT TAKE ASPIRIN DOES NOT TAKE IBUPROFEN ROS ROS ED Constitutional Constitutional ED: Denies chills, fever(s), subjective, sweats or weight loss Eyes Eyes: Denies blurry vision, change in vision or diplopia ENT ENT ED: Denies ear pain, rhinorrhea or sore throat Cardiovascular Cardiovascular: Reports palpitations; Denies chest pain, orthopnea or paroxysmal nocturnal dyspnea Respiratory/Chest Respiratory/Chest: Denies cough, dyspnea, dyspnea on exertion, orthopnea or paroxysmal nocturnal dyspnea Gastrointestinal Gastrointestinal: Reports nausea; Denies abdominal pain, diarrhea, melena or vomiting Musculoskeletal Musculoskeletal: Denies arthralgias, back pain, myalgias or neck pain Integumentary Denies abscess Neurologic Neurologic: Denies headache(s), paresthesias or weakness Psychiatric Psychiatric: Reports anxiety; Denies depression Endocrine Endocrinology: Denies cold intolerance or heat intolerance Hematologic/Lymphatic Hematologic/Lymphatic: Reports systems reviewed and no addt'l complaints, except as documented EXAM Physical Exam Narrative Exam Narrative: Patient appears pale and ill. She is quiet. She is not in distress. Const Vital Signs: 08/24/21 13:10 08/24/21 13:26 Temperature 98.1 F Temperature Source Oral Pulse Rate 66 Respiratory Rate 16 Respiratory Effort Normal Non-Labored Respiratory Pattern Normal Blood Pressure 113/64 Blood Pressure Mean 80 Pulse Ox 97 Oxygen Delivery Method Room Air Positive well nourished, well developed and obese General Appearance ED: well developed and NAD; Negative for cyanotic, diaphoretic or pallor Nutritional Appearance: obese HEENT Reports dry mucous membranes HEENT Narrative: Ears normal. Nares patent. Uvula midline. There is no erythema or exudate or inflammatory changes noted. Mouth ED: Yes dry mucous membranes Mouth: dry mucous membranes Eyes PERRL and EOMs intact bilaterally General Eye ED: Negative for pale conjunctiva or scleral icterus Neck no lymphadenopathy, supple and no JVD Resp normal respiratory effort and clear to auscultation bilaterally Cardio regular rate, regular rhythm, S1 normal heart sound, S2 normal heart sound and no murmurs GI normal to inspection, nondistended, normoactive bowel sounds, non-tender and non-distended; Negative for hepatosplenomegaly Palpation: soft Back/Spine General Back: Negative for CVA tenderness Cervical Spine: Negative for cervical spine tenderness Thoracic Spine / Upper Back: Negative for thoracic spinal tenderness Extremity normal to inspection General Extremety ED: Negative for edema or tenderness General Extremity: Negative for edema Neuro No oriented x3, No CN's II-XII intact bilaterally and No no sensory deficits noted Sensorium / Orientation: Negative for alert Motor Exam: Negative for strength 5/5 throughout Psych Psych Narrative: Patient has a flat affect. Skin no rashes or lesions noted, no wounds and skin turgor normal General Skin Exam: elasticity normal; Negative for jaundice or pallor MDM MDM MDM Narrative Medical decision making narrative: With unknown exposure. 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 Will observe Amparo for minimum 1 hour. She was treated with Zofran ODT for her nausea and Ativan for her anxiousness. Patient was reassessed at 1431. Her symptoms have resolved. She is smiling. She has normal color to her face. Discharge Plan Triage Chief Complaint: Occup Expose Other Complaint: General Illness ED Provider: Austin Black Dx/Rx/DC Orders Clinical Impression: Altered behavior, Adverse drug reaction Instructions: ED Drug Reaction, Other Prescriptions: No Action NK Primary Care Provider: Ervin Aden Referrals: [facility] [GROUP OF PHYSICIANS] - 2 Days Ervin Aden MD [Primary Care Provider] - Disposition Disposition: Home, Self Care
[2021-08-24 15:00] VITALS: BP 124/78; PULSE 88; RESP 16; TEMP 36.4; O2SAT 100
== END 2021-08-24 15:01 | disposition home or self-care (01) ==
PROVIDERS: Emergency Provider Emergency Medicine; PCP Family Medicine; Visit Provider Emergency Medicine
DX: T50.905A Adverse effect of unspecified drugs, medicaments and biological substances, initial encounter (principal); E66.9 Obesity, unspecified
CPT/HCPCS: 96374; 96375; 99285; A4216; J2405

== ENCOUNTER 2023-06-19 09:47 | Emergency (ER) | payer OTHER, SELFPAY ==
[2023-06-19 09:48] VITALS: BP 133/88; PULSE 76; RESP 16; TEMP 36.6; O2SAT 98; BMI 34.4
--- NOTE | 2023-06-19 10:44 | EX.ED.VIS.EY ---
HPI <Nancy Adams RN - Last Filed: 06/19/23 12:06> History of Present Illness Chief Complaint: Eye Problem Detail of Chief Complaint: Splashed by sodium hydroxide in right eye and on face at approximately 0930 Informant: patient Onset/Context/Timing Location: Bilateral Eyes Onset: Today and - (0930) Context: Sudden Onset Timing: Continuous Current Severity: 6/10 Maximum Severity: 10/10 Relieved by: Rinsing with water Associated Symptoms Associated Symptoms - Eyes: Burning Visual Changes: right: Blurred vision History of injury: No Visual correction: None Narrative Narrative: Patient is a 22-year-old female with no significant past medical history who got splashed by sodium hydroxide that has a pH of 13 while cleaning this morning at approximately 0930. Patient reports burning to right eye and face. She reports immediately rinsing right eye with eyewash and washing face. She reports blurred vision to right eye. She denies wearing contacts or glasses. Patient also reports burning to left forehead and left lateral lower lip. Prior similar symptoms: No Recent Illness/Hospitalization: No PFSH <Nancy Adams RN - Last Filed: 06/19/23 12:06> PFSH Medical History Acute postoperative anemia due to expected blood loss Anxiety and depression Chronic neck pain Chronic thoracic back pain Hypertrophic scar of skin Intertrigo Macromastia Neoplasm of skin of chest Neoplasm of skin of lower back Nonhealing surgical wound Shoulder pain Unspecified open wound of left breast, sequela Unspecified open wound of right breast, sequela Home Medications NK 08/24/21 [History Last Taken Unknown] Allergy/AdvReac Type Severity Reaction Status Date / Time No Known Allergies Allergy Verified 06/19/23 09:48 Family History Other No pertinent family history Surgical History History of bilateral breast reduction surgery History of excision of lesion History of tonsillectomy Social History Smoking Status: Never smoker alcohol intake: never substance use type: does not use additional social history: DOES NOT TAKE ASPIRIN DOES NOT TAKE IBUPROFEN ROS <Nancy Adams RN - Last Filed: 06/19/23 12:06> ROS ED Constitutional Constitutional ED: Denies chills, fever(s) or sweats Eyes Eyes: Reports blurry vision right and change in vision right; Denies diplopia ENT ENT ED: Denies rhinorrhea or sore throat Cardiovascular Cardiovascular: Denies chest pain or palpitations Respiratory/Chest Respiratory/Chest: Denies cough or dyspnea Gastrointestinal Gastrointestinal: Denies abdominal pain, diarrhea, nausea or vomiting Musculoskeletal Musculoskeletal: Denies arthralgias, back pain or myalgias Neurologic Neurologic: Denies headache(s), paresthesias or weakness Psychiatric Psychiatric: Reports anxiety Allergic/Immunologic Allergic/Immunologic ED: Denies mouth swelling, tongue swelling or urticaria EXAM <Nancy Adams RN - Last Filed: 06/19/23 12:06> Physical Exam Narrative Exam Narrative: Patient is awake, alert, talkative, good historian. Const Vital Signs: 06/19/23 09:48 Temperature 97.9 F Temperature Source Temporal Pulse Rate 76 Respiratory Rate 16 Blood Pressure 133/88 H Blood Pressure Mean 103 Pulse Ox 98 Oxygen Delivery Method Room Air Positive well nourished and well developed General Appearance ED: well developed HEENT Reports other atraumatic and other Nose: external nose normal and nares normal Eyes Eyes Narrative: Right sclera reddened, increased tearing, conjunctiva pink. Patient reports less burning since flushing with water. Neck no lymphadenopathy, supple and no JVD Resp normal respiratory effort, no retractions, no use of accessory muscles and clear to auscultation bilaterally Cardio regular rate, regular rhythm, S1 normal heart sound and S2 normal heart sound GI non-tender, non-distended and no masses Auscultation: normoactive bowel sounds Extremity normal to inspection Neuro oriented x3 Sensorium / Orientation: alert Motor Exam: strength 5/5 throughout Skin Skin Narrative: Left lateral lower lip with approximately 0.5 cm round reddened area [facility] <Nancy Adams RN - Last Filed: 06/19/23 12:06> [facility] Narrative Medical decision making narrative: Upon arrival to ED, patient presented with MSDS for sodium hydroxide showing it has a pH of 13. Patient immediately to eyewash station to rinse right eye for 15 minutes. History & Record Review Discussion w/independent historian: Patient Management Discussion w/another healthcare provider: Other (Dr. Garcia, ED provider) Treatment and Re-Evaluation Narrative: Following eyewash, patient reports burning sensation in right eye has improved and blurred vision is also improving. Right eye remains reddened with increased tearing. Visual acuity tested with left eye 20/25, right eye 20/25, bilateral eyes 20/20. Tetracaine applied to right eye by Dr. Garcia. Fluorescein stain applied by Dr. Garcia and no uptake noted. Dr. Garcia spoke with ophthalmology who will see her in the office at 1 PM this afternoon for repeat exam. Discharge plans discussed with patient. Patient agreeable and to be discharged home. Patient seen and evaluated with CINDY. I personally interviewed and examined the patient. I was involved in all aspects of patient's orders, interpretation of results, and treatment. Patient presents after exposure to her right eye. She was cleaning with truck car and bus cleaner and fluid got splashed onto her face and into her right eye. She does not wear glasses or contacts at the time. Inflammation from the truck car and bus cleaner indicates that this was sodium hydroxide with a pH of 13. Patient sitting upright in bed no acute distress. Head and neck examination reveals mild erythema on the forehead and chin. Right eye is slightly injected. Extraocular movements fully intact. No edema. Patient was taken to the eye station and I irrigated with cold water for 15 minutes. Following this pH is neutral. Tetracaine applied to the right eye. Fluorescein stain applied and no uptake is noted. I spoke with ophthalmology. They will see her in the office at 1 PM this afternoon for repeat exam. <Dr. Natalie Garcia MD - Last Filed: 06/19/23 15:14> [facility] Treatment and Re-Evaluation Narrative: Following eyewash, patient reports burning sensation in right eye has improved and blurred vision is also improving. Right eye remains reddened with increased tearing. Visual acuity tested with left eye 20/25, right eye 20/25, bilateral eyes 20/20. Tetracaine applied to right eye by Dr. Garcia. Fluorescein stain applied by Dr. Garcia and no uptake noted. Dr. Garcia spoke with ophthalmology who will see her in the office at 1 PM this afternoon for repeat exam. Discharge plans discussed with patient. Patient agreeable and to be discharged home. Patient seen and evaluated with CINDY student. I personally interviewed and examined the patient. I was involved in all aspects of patient's orders, interpretation of results, and treatment. Patient presents after exposure to her right eye. She was cleaning with truck car and bus cleaner and fluid got splashed onto her face and into her right eye. She does not wear glasses or contacts at the time. Inflammation from the truck car and bus cleaner indicates that this was sodium hydroxide with a pH of 13. Patient sitting upright in bed no acute distress. Head and neck examination reveals mild erythema on the forehead and chin. Right eye is slightly injected. Extraocular movements fully intact. No edema. Patient was taken to the eye station and I irrigated with cold water for 15 minutes. Following this pH is neutral. Tetracaine applied to the right eye. Fluorescein stain applied and no uptake is noted. I spoke with ophthalmology. They will see her in the office at 1 PM this afternoon for repeat exam. Discharge Plan Triage Chief Complaint: Eye Problem ED Provider: Natalie Garcia Dx/Rx/DC Orders Clinical Impression: Chemical burn of eye Instructions: ED Eye Exposure, Chemical Prescriptions: No Action NK Stand Alone Forms: Work Status Form Primary Care Provider: Care Physician,No Primary Referrals: Ulices Rucker MD [Med Staff - Active Staff] - 06/19/23 1:00 pm Hamzah Aden MD [Med Staff - Media Law Faculty Member] - Disposition Disposition: Home, Self Care Discharge Date/Time: 06/19/23 11:35
--- NOTE | 2023-06-19 10:53 | ED.RN ---
pt is drug test for [facility], [facility] care present.
[2023-06-19] MEDS: Fluorescein 1 MG STRIP 1 STRIP RIGHT EYE (11:24)
[2023-06-19] MEDS: Tetracaine 0.5% Ophthalmic Bottle 1 DRP RIGHT EYE (11:25)
[2023-06-19 11:34] VITALS: BP 92/73; PULSE 69; RESP 16; TEMP 36.8; O2SAT 98
--- NOTE | 2023-06-19 11:35 | ED.RN ---
stated ok to put bacitracin on lip.
== END 2023-06-19 11:35 | disposition home or self-care (01) ==
PROVIDERS: Emergency Provider Emergency Medicine; Visit Provider Emergency Medicine
DX: T26.91XA Corrosion of right eye and adnexa, part unspecified, initial encounter (principal); X58.XXXA Exposure to other specified factors, initial encounter
CPT/HCPCS: 99284

== ENCOUNTER 2025-01-26 11:57 | Day surgery (SDC) | payer OTHER, SELFPAY ==
--- NOTE | 2025-01-24 16:25 | PAT.ANE_ITS ---
Pre-Assessment Diagnosis/Proposed Procedure Planned Operative Procedure(s): COLONOSCOPY, EGD Anesthesia History Anesthesia History - second language tutor: Anesthesia History - second language tutor Hx Hospitalization No 01/24/25 14:37 Any Problems With Anesthesia No 01/24/25 14:37 Cholinesterase deficiency No 01/24/25 14:37 You/Your Family Experience No 01/24/25 14:37 fever (hyperthermia) with Relationship Recent Exposure to Contagious No 08/24/21 15:15 Disease Does patient have nerve No 01/24/25 14:37 stimulator Patient instructed to have device shut off --Does patient have Pacemaker or ICD? When Was Last Pacemaker Check QUESTION #4 FULL TEXT: You/Your Family Experience fever (hyperthermia) with Anesthesia Last Oral Intake Last Oral intake: Last Oral Intake NPO since Meds taken in AM with sips of water? Meds patient instructed to take am of surgery PONV PONV - second language tutor: PONV - second language tutor Female Yes 01/24/25 14:37 HX of Motion Sickness No 01/24/25 14:37 HX of N/V After Surgery No 01/24/25 14:37 Non-Smoker Yes 01/24/25 14:37 Duration of Surgery greater No 01/24/25 14:37 than 60 minutes Number of Risk Factors 2 01/24/25 14:37 PONV Score Moderate Risk 01/24/25 14:37 Height & Weight Height & Weight: Anesthesia: Height & Weight Height 5 ft 1 in 12/30/24 13:13 Respiratory Assessment Respiratory Assessment - second language tutor: Respiratory Tract Infection Hx - second language tutor Hx Respiratory Tract Infection No 01/24/25 14:37 STOP Sleep Apnea STOP Sleep Apnea - second language tutor: STOP Sleep Apnea - second language tutor Hx Hypertension No 01/24/25 14:37 Hx Sleep Apnea No 01/24/25 14:37 CPAP BIPAP Do you snore loudly (louder No 01/24/25 14:37 than talking or can be heard Do you often feel tired/ No 01/24/25 14:37 fatigued/ sleepy during daytime? Has anyone observed you stop No 01/24/25 14:37 breathing during sleep? STOP Results Negative 01/24/25 14:37 QUESTION #5 FULL TEXT : Do you snore loudly (louder than talking or can be heard through closed doors)? Tobacco Use History Tobacco Use History - second language tutor: Tobacco Use History - second language tutor Tobacco Use Smoking Status Never smoker 01/24/25 14:37 Hx Tobacco Use No 01/24/25 14:37 Years Smoking Packs Smoked per Day Smoking Cessation Date was within the last 15 years Hx Smoking Cessation Date Hx Smoking Cessation Counseling Hematologic Medial History Hematologic Hx - second language tutor: Hematologic Medical Hx - course instructor Hx of Blood Transfusion No 01/24/25 14:37 Hx of Transfusion in last 3 No 01/24/25 14:37 Months Date of Last Transfusion (if within last 3 months) Ever experience any problems No 01/24/25 14:37 with transfusion(s)? Specify any problems Hx of Preganancy in last 3 No 01/24/25 14:37 Months Nurse Filling Out Transfusion [id number] 01/24/25 14:37 & Questions: Date: 01/24/25 01/24/25 14:37 Time: 14:40 01/24/25 14:37 Patient unable to answer at this time (ie. confused, unrespo /Reproduction History /Reproductive History - second language tutor: /Reproductive Hx- second language tutor Hx Now Gestational Age (in weeks): EDC: Hx Hx Para Hx Section SAB No 06/19/23 09:48 Does the father of the baby or his family experience fever w Father of the baby Malignant Hypertension history comment [facility] Medical History (Updated 01/24/25 @ 14:42 by Orion Tovar) Anxiety Gastric reflux Non-smoker Neoplasm of skin of lower back Neoplasm of skin of chest Unspecified open wound of left breast, sequela Unspecified open wound of right breast, sequela Hypertrophic scar of skin Nonhealing surgical wound Acute postoperative anemia due to expected blood loss Intertrigo Shoulder pain Chronic thoracic back pain Chronic neck pain Macromastia Anxiety and depression Home Medications ?Medication ?Instructions ?Recorded ?Last Taken ?Type bupropion HCl 300 mg 24 hr tablet, 300 mg PO QAM 12/30 Unknown History extended release dextroamphetamine-amphetamine ER 15 mg PO QDAY 5 Unknown History 15 mg 24hr capsule,extend release (Adderall XR) lansoprazole 30 mg capsule,delayed 30 mg PO QDAY #90 c aps 12/30/24 Unknown Rx release ropinirole 0.25 mg tablet 0.25 mg PO QDAY 10/30/25 Unk nown History sodium sul 1.479 gram-potas ch See Rx Instructions PO .COMPLEX 12/30/24 Unknown Rx 0.188 gram-magnes sul 0.225 gram #28 tabs tablet (Sutab) Allergy/AdvReac Type Severity Reaction Status Date / Time No Known Allergies Allergy Verified 01/24/25 14:36 Family History Father Crohn's disease Other No pertinent family history Surgical History Hx of breast reduction, elective History of excision of lesion History of bilateral breast reduction surgery History of tonsillectomy Social History Smoking Status: Never smoker alcohol intake: never substance use type: does not use additional social history: DOES NOT TAKE ASPIRIN DOES NOT TAKE IBUPROFEN Audit: Pertinent Findings Pertinent Findings EKG Perinent findings: Normal sinus rhythm Rightward axis Borderline ECG Confirmed by JUDY SALDIVAR, ZEYAD ([id number]), editor managing newspaper SANTOS MILLER ([id number]) on 04/13/2020 10:31:08 AM Recommendation Anesthesia Recommendation Anesthesia recommendation: OPTIMIZED for anesthesia
[2025-01-26] VITALS (8 sets, daily range): BP systolic 101–116; BP diastolic 65–71; PULSE 64–100; RESP 14–18; TEMP 36.5–37; O2SAT 14–100; BMI 29.5
[2025-01-26 12:15] LABS: Internal QC Validated? YES +Cl - CLEAR BKGD
[2025-01-26 12:16] LABS: Pregnancy, Urine Negative Negative; Record Kit Lot#,Urine Preg 0000980607
[2025-01-26] MEDS: Lactated Ringers 1,000 ML 15 ML IV (12:25)
--- NOTE | 2025-01-26 12:26 | PCM.HP.STD ---
HPI - General General Date of Admission: 01/26/25 Date of Service: 01/26/25 HPI Narrative AUSTIN NUÑEZ, is a 24 F who presents [- alternating constipation and diarrhea, chronic, but worse over the past year ---- symptoms date back to high school, reports a colonoscopy at that time was unremarkable and diagnosed with IBS - reports she goes up to 3d without a BM - with formed stools she has BRB - c/o intermittent RLQ pain, worse with constipation and applying pressure - was in ER a week ago - denies any unexplained weight loss - denies any melena - Tums frequently for bloating and sour stomach and HB - denies any emesis - she has taken OTC laxative in the past - denies any dietary changes or new medications - non-smoker - rare alcohol intake - minimal caffeine - denies NSAIDS - denies any dysphagia CT 12/19/2024 Moderate to large amount of food material present in stomach. 1. 2.3 mm obstructing calculus at the right UVJ causing mild right hydronephrosis and hydroureter. 2. Mildly prominent right ovary with multiple follicular cysts. No localized abnormal fluid collection or inflammatory process surrounding the right ovary. 3. Mild diverticulosis of sigmoid colon without evidence of diverticulitis. 4. The appendix is not identified and there is no secondary sign of acute appendicitis. 5. Moderate to large amount of stool in the right side of the colon and right side of transverse colon. 6. No evidence of intraperitoneal or retroperitoneal hemorrhage. 7. No evidence of fracture or acute process in the lumbar spine, pelvic bones and joints and bilateral hip joints. FOR[facility]LY [facility], LATER [facility] Medical History Anxiety Gastric reflux Non-smoker Neoplasm of skin of lower back Neoplasm of skin of chest Unspecified open wound of left breast, sequela Unspecified open wound of right breast, sequela Hypertrophic scar of skin Nonhealing surgical wound Acute postoperative anemia due to expected blood loss Intertrigo Shoulder pain Chronic thoracic back pain Chronic neck pain Macromastia Anxiety and depression Home Medications ?Medication ?Instructions ?Recorded ?Last Taken ?Type bupropion HCl 300 mg 24 hr tablet, 300 mg PO QAM 12/30/24 01/25/25 History extended release dextroamphetamine-amphetamine ER 15 mg PO QDAY 12/30/24 01/25/25 History 15 mg 24hr capsule,extend release (Adderall XR) lansoprazole 30 mg capsule,delayed 30 mg PO QDAY #90 caps 12/30/24 01/25/25 Rx release ropinirole 0.25 mg tablet 0.25 mg PO QDAY 12/30/24 01/25/25 History sodium sul 1.479 gram-potas ch See Rx Instructions PO .COMPLEX 12/30/24 Unknown Rx 0.188 gram-magnes sul 0.225 gram #28 tabs tablet (Sutab) Allergy/AdvReac Type Severity Reaction Status Date / Time No Known Allergies Allergy Verified 01/24/25 14:36 Family History Father Crohn's disease Other No pertinent family history Surgical History Hx of breast reduction, elective History of excision of lesion History of bilateral breast reduction surgery History of tonsillectomy Social History Smoking Status: Never smoker alcohol intake: never substance use type: does not use additional social history: DOES NOT TAKE ASPIRIN DOES NOT TAKE IBUPROFEN ROS Constitutional Constitutional: Denies fatigue, fever(s), poor appetite, weight gain or weight loss Gastrointestinal Gastrointestinal: Denies belching, bloating, change in bowel habits, change in stool character, chewing difficulty, coffee ground emesis, constipation, cramping, diarrhea, dyspepsia, dysphagia, early satiety, excessive flatus, fecal incontinence, heartburn, hematemesis, hematochezia, hemorrhoids, loose stools, melena, nausea, odynophagia, rectal bleeding, tenesmus, vomiting or weight changes Vital Signs Vital Signs Vital Signs: 01/26/25 12:18 01/26/25 12:18 01/26/25 12:18 Temperature 98.6 F Temperature Source Temporal Pulse Rate 87 Respiratory Pattern Normal Blood Pressure 111/65 Blood Pressure Mean 80 Blood Pressure Source Monitor Blood Pressure Position Semi-Fowlers Blood Pressure Location Right Arm Baseline BP 111/65 Pulse Ox 14 Oxygen Delivery Method Room Air Weight Weight: 156 lb 8.451 oz Body Mass Index (BMI) 29.5 Physical Exam Const alert, oriented x3, no apparent distress and healthy appearing General Appearance: cooperative GI normal to inspection, nondistended, normoactive bowel sounds, soft to palpation, non-tender and non-distended Percussion: normal to percussion Rectal Exam: deferred Results Lab / Micro Data Labs: Laboratory Results - last 24 hr 01/26/25 12:05: Urine Test Negative Assessment & Plan Assessment/Plan (1) BRBPR (bright red blood per rectum): (2) Heartburn: (3) Nausea: (4) Constipation: (5) RLQ abdominal pain: PLAN: Assessment and Plan Assessment and Plan (1) RLQ abdominal pain: Status: Acute (2) Constipation: Status: Acute (3) Nausea: Status: Acute (4) Heartburn: Status: Acute (5) BRBPR (bright red blood per rectum): Status: Acute Medications: New lansoprazole take once a day in the morning 30 minutes before first meal 30 mg PO QDAY 90 caps 1RF linaclotide (Linzess) take once a day in the morning 30 minutes before first meal 290 mcg PO QDAY 90 caps 1RF sod sulf-pot chloride-mag sulf 1.479-0.188- 0.225 gram (Sutab) Take orally take as directed for split dose bowel prep. Do not follow instructions on box. 28 tabs 0RF Plan 24y/o female presents for consultation, referred by Mayelin Aguiar CNP for c/o abdominal pain, constipation, diarrhea, and rectal bleeding. Her family history is significant for father with Crohn's. Alteration in bowel habits dates back to high school, at which time she reports having a negative colonoscopy and was diagnosed with IBS. She experiences chronic constipation, with up to 3 days without a bowel movement, and episodes of watery diarrhea. She complains of intermittent RLQ abdominal pain, worse with constipation. She was seen in the ER approximately [address] scan was revealing for moderate to large amount of food within the stomach, of right renal calculi, mildly prominent right ovary with multiple follicular cysts, mild diverticulosis without evidence of acute diverticulitis, and a moderate to large amount of stool in the right side of the colon. She denies any unexplained weight loss. I have started her on Linzess once daily and scheduled her for a colonoscopy as she is experiencing BRBPR, primarily with hard stools. Lastly, she also complains of epigastric discomfort, nausea, and heartburn with frequent use of OTC antiacids. She will start a daily PPI and schedule EGD. Patient Instructions: Start Linzess 290mcg once daily Increase water intake Colon & EGD - Sutab Start Lansoprazole 30mg daily Follow-up in office post procedure ]
--- NOTE | 2025-01-26 12:34 | PRE.ANES_ITS ---
ASA Classification* ASA Classification ASA Classification: 2 (GERD, anxiety) Assessment & Plan Anesthesia* Anesthesia Assessment Anesthesia Assessment: Discussed sedation and/or anesthesia options, risks, benefits, and alternatives with patient/parents/legal guardian/POA. Questions invited. The patient/parents/legal guardian/POA seems to understand and agrees to proceed with anesthesia plan. Reviewed the physical assessment, medical history, allergy history and patient home medications list prior to surgery/procedure/anesthetic and documented any changes. Performed airway and anesthesia risk assessments. Anesthesia Type Anesthesia Type: MAC History Source History Obtained from:: Patient and Chart Anesthesia Focused Assessment* Temperature: 98.6 F Pulse Rate: 87 Blood Pressure: 111/65 Respiratory Rate: 14 Pulse Ox: 100 Oxygen Delivery Method: Room Air Airway Assessment Mouth opens: >3 cm Mallampati Score: II Teeth Condition: Intact Neck Range of motion (ROM): Full ROM Labs Anesthesia Preop lab: CBC WBC, (4.4-11.0) 4.5 K/mm3 04/11/20, : RBC, (4.2-5.4) 5.05 M/mm3 04/11/20, :55 Hgb, (12.0-15.0) 14.6 g/dL 04/11/20, : Hct, (37-47) 44.5 % 04/11/20, : Plt Count, (150-450) 219 K/mm3 04/11/20, 21:55 CHEMISTRY Potassium, (3.5-5.1) 3.9 mmol/L 04/11/20, 21:55 Sodium, (136-145) 138 mmol/L 04/11/20, 21:55 Magnesium, (1.6-2.6) 1.8 mg/dL 02/01/20, 06:08 BUN, (7-18) 7 mg/dL 04/11/20, :55 Creatinine, (0.55-1.02) 0.69 mg/dL 04/11/20, 21:55 Glucose, (74-106) 93 mg/dL 04/11/20, 21:55 POC Glucose, (70-110) 64 mg/dL L 02/01/20, 06:21 TSH, (0.358-3.74) 1.69 uIU/mL 02/10/20, 15:07 COAG Urine Test Negative Negative Today, 12:05 Pre-Assessment Diagnosis/Proposed Procedure Planned Operative Procedure(s): COLONOSCOPY, EGD Anesthesia History 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 When Was Last Pacemaker Check QUESTION #4 FULL TEXT: You/Your Family Experience fever (hyperthermia) with Anesthesia Last Oral Intake Last Oral intake: Last Oral Intake NPO since 07:00 01/26/25 12:18 Meds taken in AM with sips of No 01/26/25 12:18 water? Meds patient instructed to take am of surgery PONV PONV - biotech production specialist: PONV - biotech production specialist Female Yes 01/24/25 14:37 HX of Motion Sickness No 01/24/25 14:37 HX of N/V After Surgery No 01/24/25 14:37 Non-Smoker Yes 01/24/25 14:37 Duration of Surgery greater No 01/24/25 14:37 than 60 minutes Number of Risk Factors 2 01/24/25 14:37 PONV Score Moderate Risk 01/24/25 14:37 Height & Weight Height & Weight: Anesthesia: Height & Weight Height 5 ft 1 in 01/26/25 12:18 Weight: 71 kg 01/26/25 12:18 Body Mass Index (BMI) 29.5 01/26/25 12:18 Respiratory Assessment Respiratory Assessment - biotech production specialist: Respiratory Tract Infection Hx - biotech production specialist Hx Respiratory Tract Infection No 01/24/25 14:37 STOP Sleep Apnea STOP Sleep Apnea - biotech production specialist: STOP Sleep Apnea - biotech production specialist Hx Hypertension No 01/24/25 14:37 Hx Sleep Apnea No 01/24/25 14:37 CPAP BIPAP Do you snore loudly (louder No 01/24/25 14:37 than talking or can be heard Do you often feel tired/ No 01/24/25 14:37 fatigued/ sleepy during daytime? Has anyone observed you stop No 01/24/25 14:37 breathing during sleep? STOP Results Negative 01/24/25 14:37 QUESTION #5 FULL TEXT : Do you snore loudly (louder than talking or can be heard through closed doors)? 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 Specify any problems Hx of Preganancy in last 3 No 01/24/25 14:37 Months Nurse Filling Out Transfusion [id number] 01/24/25 14:37 & Questions: Date: 01/24/25 01/24/25 14:37 Time: 14:40 01/24/25 14:37 Patient unable to answer at this time (ie. confused, unrespo /Reproduction History /Reproductive History - biotech production specialist: /Reproductive Hx- biotech production specialist Hx Now Gestational Age (in weeks): EDC: Hx Hx Para Hx Section SAB No 06/19/23 09:48 Does the father of the baby or his family experience fever w Father of the baby Malignant Hypertension history comment Active Medications Active Medications: Current Medications Generic Name Dose Route Start Last Admin Trade Name Freq PRN Reason Stop Dose Admin Lactated Ringer's 1,000 mls @ 15 mls/hr 01/26/25 12:15 01/26/25 12:25 IV 15 mls/hr .Q48H GERMAN Administration PFSH Medical History Anxiety Gastric reflux Non-smoker Neoplasm of skin of lower back Neoplasm of skin of chest Unspecified open wound of left breast, sequela Unspecified open wound of right breast, sequela Hypertrophic scar of skin Nonhealing surgical wound Acute postoperative anemia due to expected blood loss Intertrigo Shoulder pain Chronic thoracic back pain Chronic neck pain Macromastia Anxiety and depression Home Medications ?Medication ?Instructions ?Recorded ?Last Taken ?Type bupropion HCl 300 mg 24 hr tablet, 300 mg PO QAM 12/3001/25/25 History extended release dextroamphetamine-amphetamine ER 15 mg PO QDAY 5 01/25/25 History 15 mg 24hr capsule,extend release (Adderall XR) lansoprazole 30 mg capsule,delayed 30 mg PO QDAY #90 c aps 12/30/24 01/25/25 Rx release ropinirole 0.25 mg tablet 0.25 mg PO QDAY 12/30/24 History sodium sul 1.479 gram-potas ch See Rx Instructions PO .COMPLEX 12/30/24 Unknown Rx 0.188 gram-magnes sul 0.225 gram #28 tabs tablet (Sutab) Allergy/AdvReac Type Severity Reaction Status Date / Time No Known Allergies Allergy Verified 01/24/25 14:36 Family History Father Crohn's disease Other No pertinent family history Surgical History Hx of breast reduction, elective History of excision of lesion History of bilateral breast reduction surgery History of tonsillectomy Social History Smoking Status: Never smoker alcohol intake: never substance use type: does not use additional social history: DOES NOT TAKE ASPIRIN DOES NOT TAKE IBUPROFEN Review of Systems (Anesthesia) ROS Narrative System reviewed and no additional complaints, except as documented. Physical Exam Const alert, oriented x3 and average body habitus Resp normal respiratory effort, normal air movement and clear to auscultation bilaterally Cardio regular rate, regular rhythm and no murmurs; Negative for diaphoretic
--- NOTE | 2025-01-26 13:00 | COLBX_PTH ---
PATIENT: AUSTIN NUÑEZ LOC: EN U#:[id number] AGE/SX: 24/F ROOM: RE01/26/[address]: Dr. Victoriano Hay DO : 2000 BED: DIS: 01/26/2025 SPEC #: [id number] RECD: 01/26/25 14:00 STATUS: LOI BRIONNA #: [id number] ELIAS: 01/26/25 13:[address]: Victoriano Hay DEPT: SURGICAL PATHOLOGY RECD BY: Zhao Dutta ENTERED: 01/26/25 14:52 SP TYPE: COLON BX OTHR DR: Dr. Hayde Rucker MD Tissues: A - Gastric mucous membrane B - Duodenum, NOS C - Ileum, NOS D - COLON BIOPSY Procedures: Immunohistochemical Stains Surgery Specimen Level IV HEADER OPERATION: Colonoscopy with biopsy, EGD with biopsy PRE-OP DIAGNOSIS: Right lower quadrant abdominal pain, constipation, nausea, heartburn, bright red blood per rectum TISSUE SUBMITTED: A- Gastric body biopsy, B- Duodenum biopsy, C- Terminal ileum biopsy,D- Random colon biopsy MICROSCOPIC DIAGNOSIS A. Stomach, body, biopsy: - Chronic gastritis. - IHC negative for H. pylori organisms. B. Small intestine, duodenum, biopsy: - Adin gland hyperplasia. - Negative for increased intraepithelial lymphocytes. C. Small intestine, terminal ileum, biopsy: - Normal villous architecture with prominent mucosal lymphoid tissue, favor reactive process - see note. Note: A reactive inflammatory process is favored. However, if clinical concern for a lymphoproliferative disorder is high, please contact the laboratory to request further evaluation. D. Colon, random, biopsy: - No specific pathologic change. - The histologic features of microscopic colitis are not demonstrated. MICROSCOPIC DESCRIPTION Slides are reviewed. All matched controls reacted appropriately. These tests were developed and their performance characteristics determined by [facility]. They may not have been cleared or approved by the U.S. Food and Drug Administration. The FDA has determined that such clearance or approval is not necessary. The above immunohistochemical markers are viewed by the Pathologist. GROSS DESCRIPTION A. Received in fixative is one container labeled with the patient's name and designated Gastric body biopsy. The specimen consists of two irregular fragments of diallo tissue, each measuring 0.5 cm. The specimen is totally submitted in one cassette. B. Received in fixative is one container labeled with the patient's name and designated Duodenum biopsy. The specimen consists of one irregular fragment of diallo tissue that measures 0.4 cm. The specimen is totally submitted in one cassette. C. Received in fixative is one container labeled with the patient's name and designated Terminal ileum biopsy. The specimen consists of multiple irregular fragments of diallo tissue that in aggregate measure 0.9 x 0.7 x 0.1 cm. The specimen is totally submitted in one cassette. D. Received in fixative is one container labeled with the patient's name and designated Random colon biopsy. The specimen consists of multiple irregular fragments of diallo tissue that in aggregate measure 1.4 x 0.5 x 0.1 cm. The specimen is totally submitted in one cassette. AR 01/26/2025 CPT:98432p5,27597
[2025-01-26] MEDS: Lidocaine 1% (5 ml sdv) 5 ML Vial 10 ML IV (13:13)
[2025-01-26] MEDS: Midazolam 2 MG/2 ML Syringe IV (13:14)
--- NOTE | 2025-01-26 13:50 | OP.EGD_ITS ---
Patient Name: Amparo Fischer Procedure Date: 01/26/2025 1:08 PM Date of : 2000 Age: 24 Procedure: Upper GI endoscopy Indications: Epigastric abdominal pain, Generalized abdominal pain, Functional Dyspepsia Providers: Victoriano Hay DO Referring MD: Hayde Rucker Medicines: Monitored Anesthesia Care Patient Profile: This is a 24 year old female. Refer to note in patient chart for documentation of history and physical. Patient has symptoms of acute abdominal cramping, chronic abdominal distention, acute right upper quadrant abdominal pain, chronic epigastric abdominal pain and chronic dyspepsia. Complications: No immediate complications. Procedure: Pre-Anesthesia Assessment: - Prior to the procedure, a History and Physical was performed, and patient medications and allergies were reviewed. The patient is competent. The risks and benefits of the procedure and the sedation options and risks were discussed with the patient. All questions were answered and informed consent was obtained. Patient identification and proposed procedure were verified by the physician in the pre-procedure area. Mental Status Examination: alert and oriented. Airway Examination: normal oropharyngeal airway and neck mobility. Respiratory Examination: clear to auscultation. CV Examination: normal. Prophylactic Antibiotics: The patient does not require prophylactic antibiotics. Prior Anticoagulants: The patient has taken no anticoagulant or antiplatelet agents except for NSAID medication. ASA Grade Assessment: II - A patient with mild systemic disease. After reviewing the risks and benefits, the patient was deemed in satisfactory condition to undergo the procedure. The anesthesia plan was to use monitored anesthesia care (MAC). Immediately prior to administration of medications, the patient was re-assessed for adequacy to receive sedatives. The heart rate, respiratory rate, oxygen saturations, blood pressure, adequacy of pulmonary ventilation, and response to care were monitored throughout the procedure. The physical status of the patient was re-assessed after the procedure. After obtaining informed consent, the endoscope was passed under direct vision. Throughout the procedure, the patient's blood pressure, pulse, and oxygen saturations were monitored continuously. The Colonoscope was introduced through the mouth, and advanced to the third part of the duodenum. Small bowel enteroscopy was deemed necessary. The upper GI endoscopy was accomplished without difficulty. The patient tolerated the procedure well. Scope In: 1:21:13 PM Scope Out: 1:25:26 PM Total Procedure Duration Time 0 hours 4 minutes 13 seconds Findings: The examined esophagus was normal. Two oozing linear gastric ulcers were found in the gastric body. The largest lesion was 5 mm in largest dimension. Biopsies were taken with a cold forceps for histology. Verification of patient identification for the specimen was done. Estimated blood loss was minimal. Biopsies were taken with a cold forceps for Helicobacter pylori testing. Verification of patient identification for the specimen was done. Estimated blood loss was minimal. No gross lesions were noted in the entire examined duodenum. Biopsies were taken with a cold forceps for histology. Verification of patient identification for the specimen was done. Estimated blood loss was minimal. Impression: - Normal esophagus. - Oozing gastric ulcers. Biopsied. - No gross lesions in the entire examined duodenum. Biopsied. Recommendation: - Discharge patient to home. - Resume previous diet. - Continue present medications. - Await pathology results. - Repeat upper endoscopy for surveillance. Procedure Code(s): --- Professional --- 76327, Small intestinal endoscopy, enteroscopy beyond second portion of duodenum, not including ileum; with biopsy, single or multiple CPT copyright 2021 [employer]. All rights reserved. The codes documented in this report are preliminary and upon senior office assistant review may be revised to meet current compliance requirements. Victoriano Hay DO 01/26/2025 1:49:33 PM This report has been signed electronically. Number of Addenda: 0 Note Initiated On: 01/26/2025 1:08 PM
--- NOTE | 2025-01-26 13:50 | OP.PROVAT_ITS ---
01/26/2025 Hayde Rucker [place] [id number] [address] Re : Upper GI endoscopy procedure for Amparo Fischer Dear Dr. Rucker This procedure was performed on Friday, January 26, 2025. My impressions and recommendations are as follows: Impressions : - Normal esophagus. - Oozing gastric ulcers. Biopsied. - No gross lesions in the entire examined duodenum. Biopsied. Recommendations : - Discharge patient to home. - Resume previous diet. - Continue present medications. - Await pathology results. - Repeat upper endoscopy for surveillance. My findings are described in the full procedure note, which is enclosed. If I can be of further assistance, please feel free to contact me at . Sincerely, Victoriano Hay, 01/26/2025 1:49:33 PM This report has been signed electronically.
--- NOTE | 2025-01-26 13:53 | OP.COLON_ITS ---
Patient Name: Amparo Fischer Procedure Date: 01/26/2025 1:25 PM Date of : 2000 Age: 24 Procedure: Colonoscopy Indications: Epigastric abdominal distress, Abdominal distress in the left upper quadrant, Abdominal distress in the left lower quadrant Providers: Victoriano Hay DO Referring MD: Hayde Rucker Medicines: Monitored Anesthesia Care Patient Profile: This is a 24 year old female. Refer to note in patient chart for documentation of history and physical. Patient has symptoms of acute abdominal cramping, chronic abdominal distention, acute right upper quadrant abdominal pain, chronic epigastric abdominal pain and chronic dyspepsia. Last Colonoscopy: none. The patient's first colonoscopy is today. Complications: No immediate complications. Procedure: Pre-Anesthesia Assessment: - Prior to the procedure, a History and Physical was performed, and patient medications and allergies were reviewed. The patient is competent. The risks and benefits of the procedure and the sedation options and risks were discussed with the patient. All questions were answered and informed consent was obtained. Patient identification and proposed procedure were verified by the physician in the pre-procedure area. Mental Status Examination: alert and oriented. Airway Examination: normal oropharyngeal airway and neck mobility. Respiratory Examination: clear to auscultation. CV Examination: normal. Prophylactic Antibiotics: The patient does not require prophylactic antibiotics. Prior Anticoagulants: The patient has taken no anticoagulant or antiplatelet agents except for NSAID medication. ASA Grade Assessment: II - A patient with mild systemic disease. After reviewing the risks and benefits, the patient was deemed in satisfactory condition to undergo the procedure. The anesthesia plan was to use monitored anesthesia care (MAC). Immediately prior to administration of medications, the patient was re-assessed for adequacy to receive sedatives. The heart rate, respiratory rate, oxygen saturations, blood pressure, adequacy of pulmonary ventilation, and response to care were monitored throughout the procedure. The physical status of the patient was re-assessed after the procedure. After I obtained informed consent, the scope was passed under direct vision. Throughout the procedure, the patient's blood pressure, pulse, and oxygen saturations were monitored continuously. The Colonoscope was introduced through the anus and advanced to the terminal ileum. The colonoscopy was performed without difficulty. The patient tolerated the procedure well. The quality of the bowel preparation was adequate. The terminal ileum, ileocecal valve, appendiceal orifice, and rectum were photographed. Scope In: 1:28:08 PM Scope Withdrawal Time 0 hours 8 minutes 9 seconds Scope Out: 1:39:56 PM Total Procedure Duration Time 0 hours 11 minutes 48 seconds Findings: The perianal and digital rectal examinations were normal. The colon (entire examined portion) appeared normal. Biopsies were taken with a cold forceps for histology. Verification of patient identification for the specimen was done. Estimated blood loss was minimal. The terminal ileum appeared normal. Biopsies were taken with a cold forceps for histology. Verification of patient identification for the specimen was done. Estimated blood loss was minimal. A few small-mouthed diverticula were found in the sigmoid colon. Impression: - The entire examined colon is normal. Biopsied. - The examined portion of the ileum was normal. Biopsied. Recommendation: - Discharge patient to home. - Resume previous diet. - Continue present medications. - Await pathology results. - Repeat colonoscopy at age 44 for screening purposes. Procedure Code(s): --- Professional --- 35874, Colonoscopy, flexible; with biopsy, single or multiple CPT copyright 2021 [employer]. All rights reserved. The codes documented in this report are preliminary and upon tuckpointer cleaner caulker review may be revised to meet current compliance requirements. Victoriano Hay DO 01/26/2025 1:52:39 PM This report has been signed electronically. Number of Addenda: 0 Note Initiated On: 01/26/2025 1:25 PM
--- NOTE | 2025-01-26 13:53 | OP.PROVAT_ITS ---
01/26/2025 Hayde Rucker [facility] [address] [place] [address] Re : Colonoscopy procedure for Amparo Fischer Dear Dr. Rucker This procedure was performed on Friday, January 26, 2025. My impressions and recommendations are as follows: Impressions : - The entire examined colon is normal. Biopsied. - The examined portion of the ileum was normal. Biopsied. Recommendations : - Discharge patient to home. - Resume previous diet. - Continue present medications. - Await pathology results. - Repeat colonoscopy at age 44 for screening purposes. My findings are described in the full procedure note, which is enclosed. If I can be of further assistance, please feel free to contact me at . Sincerely, Victoriano Friend, 01/26/2025 1:52:39 PM This report has been signed electronically.
--- NOTE | 2025-01-26 13:57 | PCM.POST.ANE ---
Anesthesia: Postop Eval I Current Vital Signs Temperature: 98.1 F Pulse Rate: 90 Blood Pressure: 102/70 Respiratory Rate: 16 Pulse Ox: 97 Oxygen Delivery Method: Room Air Assessment Airway patent: Yes Spontaneous unlabored respirations: Yes Mental status: Awake and Calm nausea: No Vomiting: No Anesthesia Complication: No Fluid Hydration Crystalloid volume administer (ml): 600 Total IV fluid infused: 600 Progress Note Anesthesia document: Postop Eval 1 completed: Yes
--- NOTE | 2025-01-26 16:05 | POSTOPAN2_ITS ---
Anesthesia Postop Eval I Sum Postop Eval Completion status Anesthesia document: Postop Eval 1 completed: Yes Anesthesia Postop Eval I Summary Anesthesia Postop Eval I Summary: Anesthesia Postop Eval I: Assessment Summary Airway patent Yes 01/26/25 13:57 [email or web address] Spontaneous unlabored Yes 01/26/25 13:57 [email or web address] [email or web address] respirations Mental status Awake,Calm 01/26/25 13:57 [email or web address] [email or web address].[email or web address] nausea No 01/26/25 13:57 POKER DEALER.[email or web address] Vomiting No 01/26/25 13:57 POKER [email or web address].[email or web address] Anesthesia Postop Eval I: Fluid Summary Crystalloid volume administer 600 01/26/25 13:57 [email or web address] (ml) Colloids volume administered ( ml) Blood Product volume administered (ml) Total IV fluid infused 600 01/26/25 13:57 [email or web address] Anesthesia Postop Eval I: Summary Notes Anesthesia Complication No 01/26/25 13:57 [email or web address] [email or web address].[email or web address] Anesthesia Complication Comment: Post-operative progress note Anesthesia: Postop Eval II Evaluation Mental status: Awake Pain Level: 0 nausea: No Vomiting: No Complications Anesthesia Complication: No
--- NOTE | 2025-01-26 16:05 | PCM.POSTANE2 ---
Anesthesia Postop Eval I Sum Postop Eval Completion status Anesthesia document: Postop Eval 1 completed: Yes Anesthesia Postop Eval I Summary Anesthesia Postop Eval I Summary: Anesthesia Postop Eval I: Assessment Summary Airway patent Yes 01/26/25 13:57 CHILD [email or web address] Spontaneous unlabored Yes 01/26/25 13:57 CHILD [email or web address].[email or web address] respirations Mental status Awake,Calm 01/26/25 13:57 CHILD [email or web address].[email or web address] nausea No 01/26/25 13:57 CHILD [email or web address].GDOTT Vomiting No 01/26/25 13:57 CHILD [email or web address].[email or web address] Anesthesia Postop Eval I: Fluid Summary Crystalloid volume administer 600 01/26/25 13:57 CHILD [email or web address].[email or web address] (ml) Colloids volume administered ( ml) Blood Product volume administered (ml) Total IV fluid infused 600 01/26/25 13:57 CHILD [email or web address].GDOTT Anesthesia Postop Eval I: Summary Notes Anesthesia Complication No 01/26/25 13:57 CHILD [email or web address].GDOTT Anesthesia Complication Comment: Post-operative progress note Anesthesia: Postop Eval II Evaluation Mental status: Awake Pain Level: 0 nausea: No Vomiting: No Complications Anesthesia Complication: No
== END 2025-01-26 14:41 | disposition home or self-care (01) ==
LOC: EN 11:58 → AC 12:00
PROVIDERS: Student in an Organized Health Care Education/Training Program; PCP Family Medicine; Referring Provider Family Medicine; Visit Provider Internal Medicine Gastroenterology
PROC: 0DJD8ZZ Inspection of Lower Intestinal Tract, Via Natural or Artificial Opening Endoscopic (ICD-10-PCS; CPT 45378; principal; 2025-01-26 12:55)
DX: K52.9 Noninfective gastroenteritis and colitis, unspecified (principal); K21.9 Gastro-esophageal reflux disease without esophagitis; K25.9 Gastric ulcer, unspecified as acute or chronic, without hemorrhage or perforation; K62.5 Hemorrhage of anus and rectum; F41.9 Anxiety disorder, unspecified; F32.A Depression, unspecified; Z79.899 Other long term (current) drug therapy
CPT/HCPCS: 44361; 45380; 81025; 88305; 88342